=== PATIENT | female | born 1995 | race Caucasian/White ===

== ENCOUNTER → 2021-02-21 14:55 | Outpatient (BNVA) | payer SELFPAY | PROVIDERS: Visit Provider Nurse Practitioner Family | DX: R53.83 Other fatigue (principal) | CPT/HCPCS: 80053; 84443; 85025 ==

== ENCOUNTER → 2021-07-28 10:57 | Outpatient (BNVA) | payer OTHER, SELFPAY | PROVIDERS: PCP Family Medicine; Visit Provider Psychiatry & Neurology Psychiatry | DX: Z79.899 Other long term (current) drug therapy (principal); F31.81 Bipolar II disorder | CPT/HCPCS: 80061; 83036 ==

== ENCOUNTER → 2021-08-25 10:00 | Outpatient (BNVA) | payer OTHER, SELFPAY | PROVIDERS: PCP Family Medicine; Visit Provider Psychiatry & Neurology Psychiatry | DX: F31.81 Bipolar II disorder (principal) | CPT/HCPCS: 83036 ==

== ENCOUNTER 2022-10-13 14:22 | Emergency (ER) | payer MEDICAID, SELFPAY ==
[2022-10-13 14:51] VITALS: BMI 33.6
[2022-10-13 14:54] VITALS: BP 117/74; PULSE 73; RESP 18; TEMP 36.7; O2SAT 95
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
[2022-10-13 16:12] VITALS: BP 117/74; PULSE 73; RESP 18; TEMP 36.7; O2SAT 95
--- NOTE | 2022-10-19 11:39 | DCPLANNER ---
manager paid called patient due to no primary care physician - no answer at this time.
== END 2022-10-13 16:15 | disposition home or self-care (01) ==
PROVIDERS: Emergency Provider Physician Assistant
DX: S16.1XXA Strain of muscle, fascia and tendon at neck level, initial encounter (principal); V89.2XXA Person injured in unspecified motor-vehicle accident, traffic, initial encounter
CPT/HCPCS: 71045; 72040; 99283